=== PATIENT | female | born 1990 | race Caucasian/White ===

== ENCOUNTER 2017-11-23 05:44 | Day surgery (SDC) | payer OTHER ==
[~2017-11-23] VITALS: Ht 172.7 cm; Wt 94.0 kg
[2017-11-23 06:18] VITALS: BP 115/87
[2017-11-23] MEDS ORDERED: LACTATED RINGERS 1,000 ML IV SCH (06:21)
[2017-11-23] MEDS ORDERED: DOXYCYCLINE 100 MG in DEXTROSE 5% 250 ML IV ONE (06:30)
[2017-11-23] MEDS ORDERED: NO MEDICATIONS (06:46)
[2017-11-23] MEDS ORDERED: MIDAZOLAM 1 MG/ML, 2ML IV PRN (07:00)
[2017-11-23] MEDS ORDERED: PROMETHAZINE 25 MG/ML, 1ML IV PRN (07:00)
[2017-11-23] MEDS ORDERED: ONDANSETRON ODT 8 MG PO PRN (07:00)
[2017-11-23] MEDS ORDERED: METOCLOPRAMIDE 5 MG/ML, 2ML IV PRN (07:00)
[2017-11-23] MEDS ORDERED: hydrALAzine 20 MG/ML, 1ML IV PRN (07:00)
[2017-11-23] MEDS ORDERED: LABETALOL 5MG/ML, 20ML IV PRN (07:00)
[2017-11-23] MEDS ORDERED: PROMETHAZINE 25 MG SUPP PR PRN (07:00)
[2017-11-23] MEDS ORDERED: SCOPOLAMINE PATCH, 1.5MG PATCH.TD72 TD PRN (07:00)
[2017-11-23] MEDS ORDERED: EPHEDRINE 50 MG/ML, 1ML IM PRN (07:00)
[2017-11-23] MEDS ORDERED: MEPERIDINE/PF 25MG/0.5ML IVPush PRN (07:00)
[2017-11-23] MEDS ORDERED: FENTANYL PF 100 MCG/2ML IV PRN (07:00)
[2017-11-23] MEDS ORDERED: HYDROmorphone 1 MG/ML, 1ML IV PRN (07:00)
[2017-11-23] MEDS ORDERED: DIAZEPAM 5 MG/ML, 2ML IVPush PRN (07:00)
[2017-11-23] MEDS ORDERED: MORPHINE SULFATE 4 MG/ML, 1ML IVPush PRN (07:00)
[2017-11-23] MEDS ORDERED: OXYcodone 5 MG/5 ML ORAL.SOL UDC PO PRN (07:00)
[2017-11-23] MEDS ORDERED: DIPHENHYDRAMINE 50 MG/ML, 1ML IVPush PRN (07:00)
[2017-11-23] MEDS ORDERED: ALBUTEROL/IPRATROPIUM 2.5MG/0.5MG, 3 ML NPPB PRN (07:00)
[2017-11-23] MEDS ORDERED: MIDAZOLAM 1 MG/ML, 2ML ONE (07:11)
[2017-11-23] MEDS ORDERED: FENTANYL PF 100 MCG/2ML ONE (07:12)
[2017-11-23] MEDS ORDERED: SILVER NITRATE STICK TP ONE (07:15)
[2017-11-23] MEDS ORDERED: OXYTOCIN 10 UNITS/ML, 1ML ONE (07:15)
[2017-11-23] MEDS ORDERED: DOXYCYCLINE 100 MG ONE (07:15)
[2017-11-23] MEDS ORDERED: MISOPROSTOL 200 MCG TABLET ONE (07:15)
[2017-11-23] MEDS ORDERED: METHYLERGONOVINE 0.2 MG/ML IM ONE (07:15)
[2017-11-23] MEDS ORDERED: KETOROLAC 30 MG/1 ML ONE (07:29)
[2017-11-23] MEDS ORDERED: GABAPENTIN 300 MG CAPSULE PO ONE (07:30)
[2017-11-23] MEDS ORDERED: ACETAMINOPHEN 500 MG TABLET PO ONE (07:30)
[2017-11-23] MEDS ORDERED: ONDANSETRON ODT 8 MG PO ONE (07:30)
[2017-11-23] MEDS ORDERED: BUPIVACAINE/PF-EPI 0.25% 1:200K INFIL ONE (07:45)
[2017-11-23] MEDS ORDERED: PROPOFOL 10 MG/ML, 20ML ONE (07:55)
[2017-11-23] MEDS ORDERED: ONDANSETRON 2MG/ML, 2ML ONE (07:55)
[2017-11-23] MEDS ORDERED: CEFAZOLIN 1,000 MG ONE (07:55)
[2017-11-23] MEDS ORDERED: DEXAMETHASONE 4 MG/ML, 1ML ONE (07:55)
[2017-11-23] MEDS ORDERED: BUPIVACAINE/PF-EPI 0.25% 1:200K ONE (08:02)
== END 2017-11-23 09:40 ==
LOC: OUT 05:44
PROVIDERS: ATTEND Obstetrics & Gynecology
DX: O02.0 Blighted ovum and nonhydatidiform mole (principal); Z3A.00 Weeks of gestation of pregnancy not specified
CPT/HCPCS: 59820; 88305; J0690; J1100; J1885; J2210; J2250; J2704; J3010; J7060; J7120; Q0162; J2405; J2590